=== PATIENT | male | born 1940 | race Caucasian/White ===

== ENCOUNTER 2023-06-08 15:40 | Emergency (ER) | payer MEDICARE, OTHER ==
[~2023-06-08] VITALS: Ht 182.9 cm; Wt 81.6 kg
[2023-06-08 15:40] VITALS: BP 121/80; PULSE 54; RESP 18; TEMP 98.7; O2SAT 98
[2023-06-08] MEDS ORDERED: TRIPLE ANTIBIOTIC OINTMENT PKT TP ONE (16:47)
[2023-06-08] MEDS ORDERED: BOOSTRIX IM ONE (16:54)
[2023-06-08] MEDS: BOOSTRIX IM ONE (16:56)
[2023-06-08 17:10] VITALS: BP 118/74; PULSE 60; RESP 18; O2SAT 99
== END 2023-06-08 17:10 | disposition home or self-care (01) ==
LOC: ER 15:50
DX: S61.212A Laceration without foreign body of right middle finger without damage to nail, initial encounter (principal); I10 Essential (primary) hypertension; E78.00 Pure hypercholesterolemia, unspecified; X58.XXXA Exposure to other specified factors, initial encounter; Y93.89 Activity, other specified; Y92.098 Other place in other non-institutional residence as the place of occurrence of the external cause; Y99.8 Other external cause status
CPT/HCPCS: 12002; 90471; 90715; 99283; 73140-RT

== ENCOUNTER 2024-03-25 10:59 | Emergency (ER) | payer MEDICARE, OTHER ==
[~2024-03-25] VITALS: Ht 182.9 cm; Wt 80.7 kg
[2024-03-25 10:59] VITALS: BP 159/84; PULSE 68; RESP 18; TEMP 97.9; O2SAT 98
[2024-03-25] MEDS ORDERED: MORPHINE SULFATE ONE (11:36)
[2024-03-25] MEDS ORDERED: ZOFRAN ONE (11:36)
[2024-03-25] MEDS ORDERED: NS 1000ML 1,000 ML ONE (11:36)
[2024-03-25] MEDS: ZOFRAN IV STA (11:41)
[2024-03-25] MEDS: NS 1000ML 1,000 ML IV STA (11:41)
[2024-03-25] MEDS: MORPHINE SULFATE IV STA (11:42)
[2024-03-25 11:47] LABS: +ADD MANUAL DIFF(NO CHRG) NO; BASOPHIL % 0.3 % (0.2-1.2); BILIRUBIN,URINE NEGATIVE (NEGATIVE); EOSINOPHIL % 0.2 % (0.0-5.0); HEMATOCRIT(ML) 44.3 % (37.0-53.0); HEMOGLOBIN 14.9 g/dL (13.9-16.3); LEUKOCYTE ESTERASE ,URINE NEGATIVE (NEGATIVE); LYMPHOCYTES # 1.25 10^3/uL1 (1.0-4.8); LYMPHOCYTES % 10.3 % (24.0-44.0); MEAN CORP HGB 31.4 pg (26-34); MEAN CORP HGB CONCENTRATION 33.6 g/dL (33-36.5); MEAN CORP VOLUME 93.5 fL (78-100); MONOCYTES # 0.7 10^3/uL (0.3-0.8); MONOCYTES % 5.8 % (5.0-12.0); NEUTROPHIL # 10.1 10^3/uL (1.8-7.7); NEUTROPHILS % 83.2 % (41.0-85.0); NITRATE,URINE NEGATIVE (NEGATIVE); PH,URINE 5.5 (4.5-8.0); PLATELET COUNT 145 10^3/uL (150-400); RED BLOOD CELL 4.74 10^6/uL (4.50-5.90); RED CELL DISTRIBUTION WIDTH 14.1 % (11.5-14.5); UROBILINOGEN,URINE 0.2 E.U./dL (0.2); WHITE BLOOD CELL 12.2 10^3/uL (4.5-11.0)
[2024-03-25 12:06] LABS: APPEARANCE,URINE CLEAR; UA COLOR YELLOW
[2024-03-25 12:18] VITALS: BP 143/78; PULSE 70; RESP 18; TEMP 97.9; O2SAT 98
[2024-03-25 12:24] LABS: ALBUMIN(ML) 3.6 g/dL (3.4-5.0); ALBUMIN/GLOBULIN RATIO 1.125; ANION GAP 16.6; BUN/CREATININE RATIO 12.6 (10.0-20.0); CALCIUM 9.2 mg/dL (8.4-10.5); CARBON DIOXIDE 23.7 mmol/L (20.0-32); CREATININE SERUM 1.19 mg/dL (0.59-1.40); EST GFR, NON-AA 58.1 (>/=60); POTASSIUM 3.3 mmol/L (3.6-5.2)
[2024-03-25] MEDS ORDERED: PROTONIX IV IV ONE (12:53)
[2024-03-25] MEDS: PROTONIX IV IV STA (12:59)
== END 2024-03-25 14:15 | disposition left against medical advice (07) ==
LOC: ER 10:59
DX: K52.9 Noninfective gastroenteritis and colitis, unspecified (principal); K80.20 Calculus of gallbladder without cholecystitis without obstruction; E86.0 Dehydration; E78.00 Pure hypercholesterolemia, unspecified; I10 Essential (primary) hypertension; Z90.89 Acquired absence of other organs
CPT/HCPCS: 99285; 74177; 96374; 96375; 96361; 80053; 85025; 86677; 36415; 81001; 83690; 93005; J2270; J7030; J2405; Q9965; C9113